=== PATIENT | female | born 1985 | race Caucasian/White ===

== ENCOUNTER 2024-03-19 21:25 | Emergency (ER) | payer SELFPAY ==
[2024-03-19 21:32] VITALS: BP 127/66; PULSE 106; RESP 18; TEMP 37; O2SAT 100; BMI 19.0
--- NOTE | 2024-03-19 21:49 | DI.RAD.S_ITS ---
PROCEDURE: XR FOOT RT MIN 3V INDICATIONS: stepped on a nail TECHNIQUE: 3 views of the foot were acquired. COMPARISON: None. FINDINGS: Bones: No fractures or dislocations. No suspicious bony lesions. Soft tissues: No tibiotalar joint effusion. Achilles tendon appears normal. IMPRESSION: No acute fractures are seen. No radiopaque foreign bodies. Dictated by: Raheel Holbrook M.D. on 03/19/2024 at 22:09 Approved by: Raheel Holbrook M.D. on 03/19/2024 at 22:10
--- NOTE | 2024-03-19 22:04 | ED.WOUNDLAC ---
HPI - Wound/Laceration General Chief Complaint: Wound/Laceration Stated Complaint: rt foot, stepped on lacey nail Time Seen by Provider: 03/19/24 21:45 Source: patient Mode of arrival: Ambulatory History of Present Illness HPI narrative: 39-year-old female who is here for evaluation an injury that she sustained when she stepped on a nail on her right foot. Event occurred approximately 1 hour prior to arrival here in the ER. Is in need of a tetanus shot. No other injuries from the event. No interventions prior to arrival Related Data Allergies Allergy/AdvReac Type Severity Reaction Status Date / Time No Known Drug Allergies Allergy Verified 03/19/24 21:32 Review of Systems Musculoskeletal Musculoskeletal: Reports system reviewed and no additional complaints, except as documented Integumentary/Breasts Skin/Breast: Reports system reviewed and no additional complaints, except as documented Patient History Social History Smoking Status: Current every day smoker Smoking Status: Current every day smoker tobacco type: vaping Substance Use Type: marijuana Exam Initial Vital Signs Initial Vital Signs: Vital Signs Temperature 98.6 F 03/19/24 21:32 Pulse Rate 106 H 03/19/24 21:32 Respiratory Rate 18 03/19/24 21:32 Blood Pressure 127/66 03/19/24 21:32 Pulse Oximetry 100 03/19/24 21:32 Oxygen Delivery Method Room Air 03/19/24 21:32 Skin Other: Very small puncture wound on the plantar aspect of the right foot at the base of the great toe/area in between the great toe and 2nd toe. Course Orders Ordered: ED Orders 03/19/24 21:49 XR foot RT min 3V Stat Discontinued Medications Diphtheria/Tetanus/Acell Pertussis (Tet,Diph,Pertuss(Acell),Vac/Pf 0.5 Ml Syringe) 0.5 ml IM .ONCE ONE Stop: 03/19/24 22:06 Last Admin: 03/19/24 22:24 Dose: 0.5 ml Documented By: BS Vital Signs Vital signs: Vital Signs - 8 hr 03/19/24 21:32 Temperature 98.6 F Pulse Rate 106 H Respiratory Rate 18 Blood Pressure 127/66 Pulse Oximetry 100 Oxygen Delivery Method Room Air MDM - Wound/Laceration Imaging Data Extremity x-ray #1: Radiologist's Impression: PROCEDURE: XR FOOT RT MIN 3V INDICATIONS: stepped on a nail TECHNIQUE: 3 views of the foot were acquired. COMPARISON: None. FINDINGS: Bones: No fractures or dislocations. No suspicious bony lesions. Soft tissues: No tibiotalar joint effusion. Achilles tendon appears normal. IMPRESSION: No acute fractures are seen. No radiopaque foreign bodies. MDM Narrative Medical decision making narrative: No foreign bodies noted on x-ray. Tetanus shot was updated. Has a very small puncture wound on the plantar aspect of the right foot without signs of foreign body. We will hold on prophylactic antibiotics for now and patient was given return precautions. She expressed understanding and agreement with plan. Discharge Plan Departure Patient Disposition: Home Clinical Impression: Puncture wound of foot, right Instructions: DI for Puncture Wound Activity Restrictions/Additional Instructions: Your tetanus was updated today. You can shower like normal. You can keep the area covered with a bandage as needed. Return to the emergency department for new or worsening symptoms. Stand Alone Forms: Patient Portal/API
[2024-03-19] MEDS: TET,DIPH,PERTUSS(ACELL),VAC/PF 0.5 ML SYRINGE IM (22:24)
== END 2024-03-19 22:34 | disposition home or self-care (01) ==
PROVIDERS: Emergency Provider Emergency Medicine
DX: S91.331A Puncture wound without foreign body, right foot, initial encounter (principal); W45.0XXA Nail entering through skin, initial encounter; Z23 Encounter for immunization
CPT/HCPCS: 73630; 90471; 99283; 90715